=== PATIENT | male | born 1965 | race Caucasian/White ===

== ENCOUNTER 2020-09-29 09:31 | Outpatient (CLI) | payer OTHER, SELFPAY ==
[2020-09-29 10:06] LABS: Hematocrit 48.3 % (42.0-52.0); Hemoglobin 16.3 g/dL (14.0-18.0); Mean Corpuscular HGB Conc 33.7 g/dl (32-36); Mean Corpuscular Hemoglobin 30.9 pg (26-34); Mean Corpuscular Volume 91.7 fl (80-100); Mean Platelet Volume 10.7 fl (7.4-10.4); Platelet Count Result 229 k/mm3 (150-375); Red Blood Count 5.27 M/mm3 (4.6-6.20); Red Cell Distribution Width 12.3 % (11.5-14.5); White Blood Count 5.5 K/mm3 (4.5-10.0)
[2020-09-29 10:18] LABS: Alanine Aminotransferase 26 U/L (4-50); Albumin Level 4.5 g/dL (3.5-5.1); Alkaline Phosphatase 55 U/L (38-126); Anion Gap 10 mmol/L (8-16); Aspartate Amino Transferase 28 U/L (17-59); Bilirubin,Total 1.6 mg/dL (0.2-1.3); Blood Urea Nitrogen 16 mg/dL (9-20); Calcium 9.8 mg/dL (8.4-10.2); Carbon Dioxide 26 mmol/L (22-30); Chloride 105 mmol/L (98-107); Cholesterol 242 mg/dL (0-200); Estimated Glomerular Filt Rate > 60; Glucose 114 mg/dL (75-110); HDL Direct 66 mg/dL; Potassium 4.3 mmol/L (3.4-5.0); Sodium 141 mmol/L (137-145); Triglycerides 200 mg/dL (<150)
[2020-09-29 10:29] LABS: LDL Cholesterol Direct 108 mg/dL
--- NOTE | 2020-09-29 10:30 | ECG_ITS ---
Measurements Intervals [place] Rate: 70 P: 47 NC: 136 QRS: 16 QRSD: 102 T: 9 QT: 366 QTc: 395 Interpretive Statements SINUS RHYTHM NORMAL ECG Electronically Signed On 09-29-2020 12:06:21 CDT by Amish Wynn D.O.
[2020-09-29 10:49] LABS: Prostate Specific Antigen 0.7 ng/mL (< OR = 4.0)
[2020-09-29 10:53] LABS: Vitamin D 25 Hydroxy 43.9 ng/mL
== END 2020-09-29 09:32 | disposition home or self-care (01) ==
LOC: ANHLAB 09:35
PROVIDERS: PCP Family Medicine; Visit Provider Nurse Practitioner Family
DX: Z12.5 Encounter for screening for malignant neoplasm of prostate (principal); E78.49 Other hyperlipidemia; E55.9 Vitamin D deficiency, unspecified; Z13.29 Encounter for screening for other suspected endocrine disorder; R07.89 Other chest pain; Z51.81 Encounter for therapeutic drug level monitoring; Z79.899 Other long term (current) drug therapy; I10 Essential (primary) hypertension; R53.83 Other fatigue
CPT/HCPCS: 36415; 80053; 80061; 82306; 82607; 84153; 84443; 85027; 93005; G0103

== ENCOUNTER 2020-10-15 09:00 | Outpatient (CLI) | payer OTHER, SELFPAY ==
--- NOTE | ~2020-10-15 | XR_ITS ---
EXAMINATION: XR lumbar spine 2-3V DATE: 10/15/2020 09:16 INDICATION: Low back pain TECHNIQUE: Anteroposterior and lateral views of the lumbar spine, and cone-down lateral view of the l umbosacral junction were obtained. COMPARISON: None. FINDINGS: There is no fracture, dislocation, or subluxation. The vertebral body heights are normal. T here is minimal levocurvature of the lumbar spine. The intervertebral disc spaces are maintained. Sma ll degenerative osteophytes project from the anterior endplates of multiple vertebral bodies. Mild fa cet osteoarthritis is noted in the lower lumbar spine. The bowel gas pattern is normal. There is mild osteoarthritis of the hips. IMPRESSION: 1. Mild lumbar spondylosis without acute findings. Reviewed, dictated and finalized at location A.
== END 2020-10-15 09:01 | disposition home or self-care (01) ==
PROVIDERS: PCP Family Medicine; Visit Provider Nurse Practitioner Family
DX: M47.816 Spondylosis without myelopathy or radiculopathy, lumbar region (principal); R20.0 Anesthesia of skin
CPT/HCPCS: 72100

== ENCOUNTER 2020-10-27 09:27 | Outpatient (CLI) | payer OTHER, SELFPAY ==
--- NOTE | 2020-10-30 13:00 | WPDHOLTEREM ---
Holter/Event Monitor Holter/Event Monitor Date of procedure: 10/27/20 Holter/Event Procedure: 24 Hr Holter Monitor Indications: Chest pain Conclusion: 1. 24 hour holter monitor on 10/27/20. 2. Underlying rhythm is sinus rhythm. HR range 62-140 bpm; average HR 95 bpm. 3. There are 1 premature surpaventricular complex. No supraventricular tachycardia. 4. No premature ventricular complex. No ventricular tachycardia. 5. No sinoatrial or atrioventricular blocks. No signficant pauses greater than 2 seconds. 6. No symptoms available for correlation.
== END 2020-10-27 09:28 | disposition home or self-care (01) ==
LOC: ANHCARD 09:28
PROVIDERS: PCP Family Medicine; Visit Provider Nurse Practitioner Family
DX: R07.9 Chest pain, unspecified (principal)
CPT/HCPCS: 93225; 93226

== ENCOUNTER 2021-03-15 15:40 | Outpatient (CLI) | payer OTHER, SELFPAY | END 2021-03-15 15:41 | disposition home or self-care (01) | LOC: ANHLAB 15:42 | PROVIDERS: PCP Family Medicine; Visit Provider Nurse Practitioner Family | DX: E55.9 Vitamin D deficiency, unspecified (principal) | CPT/HCPCS: 36415; 82306 ==

== ENCOUNTER 2021-05-31 15:59 | Outpatient (CLI) | payer OTHER, SELFPAY ==
--- NOTE | ~2021-05-31 | XR_ITS ---
XR ribs BI 3V w CXR 2V DATE: 05/31/2021 15:50 INDICATION: Localized swelling, mass, lump of the trunk TECHNIQUE: PA and lateral chest. 3 views of the right ribs. 3 views of the left ribs. COMPARISON: None FINDINGS: Normal heart size. No hilar or mediastinal enlargement. The lungs are clear of infiltrate o r consolidation. No pleural effusion or pulmonary vascular congestion or pneumothorax. Status post cholecystectomy. No left or right rib fracture is detected. IMPRESSION: No rib fracture or bone destruction is evident No active pulmonary disease Status post cholecystectomy Reviewed, dictated and finalized at location A. IONHOLDER INFORMATION CLERK
[2021-05-31 16:25] LABS: Alanine Aminotransferase 41 U/L (4-50); Albumin Level 4.6 g/dL (3.5-5.1); Alkaline Phosphatase 67 U/L (38-126); Anion Gap 6 mmol/L (8-16); Aspartate Amino Transferase 35 U/L (17-59); Bilirubin,Total 0.8 mg/dL (0.2-1.3); Blood Urea Nitrogen 20 mg/dL (9-20); Calcium 9.6 mg/dL (8.4-10.2); Carbon Dioxide 26 mmol/L (22-30); Chloride 105 mmol/L (98-107); Cholesterol 226 mg/dL (0-200); Estimated Glomerular Filt Rate > 60; Glucose 111 mg/dL (65-110); HDL Direct 60 mg/dL; Potassium 4.2 mmol/L (3.4-5.0); Sodium 137 mmol/L (137-145); Triglycerides 233 mg/dL (<150)
[2021-05-31 16:37] LABS: LDL Cholesterol Direct 116 mg/dL
[2021-05-31 17:11] LABS: Hemoglobin A1C 5.7 % (<5.7)
== END 2021-05-31 16:00 | disposition home or self-care (01) ==
PROVIDERS: PCP Family Medicine; Visit Provider Nurse Practitioner Family
DX: R22.2 Localized swelling, mass and lump, trunk (principal); R07.89 Other chest pain; R05.9 Cough, unspecified; Z20.822 Contact with and (suspected) exposure to COVID-19; R73.01 Impaired fasting glucose; I10 Essential (primary) hypertension
CPT/HCPCS: 36415; 71046; 71110; 80053; 80061; 83036

== ENCOUNTER 2022-05-16 05:11 | Emergency (ER) | payer OTHER, SELFPAY ==
[2022-05-16] VITALS (9 sets, daily range): BP systolic 123–152; BP diastolic 87–100; PULSE 70–91; RESP 14–19; TEMP 37; O2SAT 98–100
--- NOTE | ~2022-05-16 | XR_ITS ---
Clinical Indication: Chest pain PA and lateral views of the chest: Comparison: 05/31/2021 Findings: The lungs are clear, without evidence of focal consolidation or pleural effusion. Cardiome diastinal silhouette is within normal limits. Bones and soft tissues are unremarkable. Impression: Normal chest. Reviewed, dictated and finalized at [facility]. ON CUTTER Impression: Normal chest.
--- NOTE | 2022-05-16 05:12 | ECG_ITS ---
Measurements Intervals [place] Rate: 89 P: 48 HI: 142 QRS: 16 QRSD: 97 T: 10 QT: 349 QTc: 426 Interpretive Statements SINUS RHYTHM LOW QRS VOLTAGE IN PRECORDIAL LEADS CONSIDER INFERIOR INFARCT, AGE INDETERMINATE BASELINE WANDER- I, V5 ABNORMAL ECG COMPARED TO ECG 09/29/2020 10:35:42 NO SIGNIFICANT CHANGES Electronically Signed On 05-16-2022 7:52:37 [employer] by Amish Wynn D.O.
[2022-05-16 05:25] LABS: Basophils Absolute Auto 0.1 K/mm3 (0.0-0.1); Basophils Percent Auto 0.9 % (0.2-1.2); Eosinophils Absolute Auto 0.1 K/mm3 (0-0.3); Eosinophils Percent Auto 1.8 % (0-4.4); Hematocrit 44.7 % (42.0-52.0); Hemoglobin 15.3 g/dL (14.0-18.0); Immature Granulocyte Absolute 0.01 K/mm3 (0.00-0.031); Immature Granulocyte Percent A 0.2 % (0-0.5); Lymphocytes Absolute Auto 1.96 K/mm3 (0.9-3.2); Lymphocytes Percent Auto 29.7 % (18.3-44.2); Mean Corpuscular HGB Conc 34.2 g/dl (32-36); Mean Corpuscular Hemoglobin 31.5 pg (26-34); Mean Platelet Volume 10.6 fl (7.4-10.4); Monocytes Absolute Auto 0.7 K/mm3 (0.1-0.6); Monocytes Percent Auto 10.9 % (2.6-8.5); Neutrophils Absolute Auto 3.7 K/mm3 (1.3-6.7); Neutrophils Percent Auto 56.5 % (45.5-73.1); Platelet Count Result 208 k/mm3 (150-375); Red Blood Count 4.86 M/mm3 (4.6-6.20); Red Cell Distribution Width 11.9 % (11.5-14.5); White Blood Count 6.6 K/mm3 (4.5-10.0)
--- NOTE | 2022-05-16 05:33 | ED.GENADULT ---
HPI - General Adult General Chief complaint: Chest Pain <Stephen Miles MD - Last Filed: 05/16/22 05:35> Stated complaint: Chest pain <Stephen Miles MD - Last Filed: 05/16/22 05:35> Time Seen by Provider: 05/16/22 05:19 <Stephen Miles MD - Last Filed: 05/16/22 05:35> History of Present Illness HPI narrative: Patient is a 56-year-old gentleman who presents to the emergency department with chief complaint of chest pain. Patient reports that this evening he started having some chest discomfort describes it as midsternal nonradiating patient denies pain in his arm or neck patient denies diaphoresis. Patient reports he has history of hypertension and hyperlipidemia reports he has had a prior cholecystectomy reports he does have history of reflux. Patient reports he has noticed some intermittent discomfort over the last several days but increased his dose of Prilosec and has had improvement in the symptoms up until Monday. <Stephen Miles MD - Last Filed: 05/16/22 05:35> Related Data Allergies/adverse reactions: Allergies Allergy/AdvReac Type Severity Reaction Status Date / Time No Known Allergies Allergy Verified 05/16/22 05:16 <Stephen Miles MD - Last Filed: 05/16/22 05:35> Review of Systems Review of Systems: A 10 system review of systems was completed on the patient and is negative except for what is stated in the HPI. Nursing and ancillary documentation was reviewed. <Stephen Miles MD - Last Filed: 05/16/22 05:35> [facility] Past Medical History Medical History: Medical History BMI 25.0-25.9,adult BMI 26.0-26.9,adult BMI 27.0-27.9,adult Cholecystectomy planned <Stephen Miles MD - Last Filed: 05/16/22 05:35> Surgical History Surgical History: Surgical History H/O rotator cuff surgery <Stephen Miles MD - Last Filed: 05/16/22 05:35> Family History Family History: Family History Father Heart disease Pacemaker Skin cancer Mother Diabetes mellitus COPD (chronic obstructive pulmonary disease) Sibling No problems noted. 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 Gender identity (if verbalized by the patient): Male <Stephen Miles MD - Last Filed: 05/16/22 05:35> Exam Narrative: GENERAL: Well-appearing, well-nourished, and in no acute distress. HEAD: Normocephalic, atraumatic. EYES: PERRLA and EOMI. ENT: Nares clear, no rhinorrhea or epistaxis. Mucous membranes moist. NECK: Supple. CHEST: Clear to auscultation. No respiratory distress. HEART: Regular rate and rhythm. No murmur heard. Normal peripheral pulses. ABDOMEN: Soft, nontender, nondistended, normal active bowel sounds. EXTREMITIES: Normal range of motion. No edema. SKIN: Warm, dry, no rash. NEURO: No focal deficits. Alert and oriented x3. PSYCH: Normal mood and affect. <Stephen Miles MD - Last Filed: 05/16/22 05:35> Course Course Emergency Course: Patient's troponins negative x2. [place] appropriate for outpatient follow-up with PCP. Patient informed of results and agreeable discharge
[2022-05-16 05:36] LABS: Alanine Aminotransferase 49 U/L (6-50); Albumin Level 4.2 g/dL (3.5-5.1); Alkaline Phosphatase 68 U/L (38-126); Anion Gap 6 mmol/L (8-16); Aspartate Amino Transferase 31 U/L (17-59); Bilirubin,Total 1.2 mg/dL (0.2-1.3); Blood Urea Nitrogen 17 mg/dL (9-20); Calcium 8.9 mg/dL (8.4-10.2); Carbon Dioxide 28 mmol/L (22-30); Chloride 105 mmol/L (98-107); Estimated CRCL calculation 80 ml/min; Estimated Glomerular Filt Rate > 60; Glucose 119 mg/dL (65-110); Lipase 148 U/L (23-300); Prothrombin Time 12.5 Seconds (11.1-14.7); Sodium 139 mmol/L (137-145)
[2022-05-16 05:37] LABS: Partial Thromboplastin Time 25.8 SECONDS (22.3-36.8)
[2022-05-16 05:47] LABS: Troponin I < 0.012 ng/mL (0.000-0.034)
[2022-05-16] MEDS: BELLADONNA ALK/PHENOB ELIX 10 ML, MAG HYDROX/ALUMINUM HYD/SIMETH 30 ML, LIDOCAINE HCL 2... PO (06:14)
[2022-05-16] MEDS: ASPIRIN 81 MG CHEWABLE TABLET 324 MG PO (06:14)
--- NOTE | 2022-05-16 07:08 | PC.NURSE ---
Report given to FABIOLA Marie.
[2022-05-16 08:41] LABS: Troponin I < 0.012 ng/mL (0.000-0.034)
== END 2022-05-16 09:49 | disposition home or self-care (01) ==
PROVIDERS: Emergency Provider Emergency Medicine; PCP Family Medicine
DX: R07.89 Other chest pain (principal); Z77.22 Contact with and (suspected) exposure to environmental tobacco smoke (acute) (chronic); R94.31 Abnormal electrocardiogram [ECG] [EKG]
CPT/HCPCS: 36415; 71046; 80053; 83690; 84484; 85025; 85610; 85730; 93005; 99284; A9270

== ENCOUNTER 2022-05-21 08:14 | Outpatient (CLI) | payer OTHER, SELFPAY ==
[2022-05-21 10:32] LABS: Cholesterol 193 mg/dL (0-200); HDL Direct 49 mg/dL; Triglycerides 78 mg/dL (<150)
[2022-05-21 10:43] LABS: LDL Cholesterol Direct 103 mg/dL
[2022-05-21 10:58] LABS: Vitamin D 25 Hydroxy 37.5 ng/mL
[2022-05-21 11:04] LABS: Prostate Specific Antigen 1.3 ng/mL (< OR = 4.0); Thyroid Stimulating Hormone 0.363 uIU/mL (0.465-4.680)
[2022-05-21 11:20] LABS: Hemoglobin A1C 5.4 % (<5.7)
== END 2022-05-21 08:15 | disposition home or self-care (01) ==
LOC: ANHLAB 08:15
PROVIDERS: PCP Family Medicine; Visit Provider Nurse Practitioner Family
DX: R73.09 Other abnormal glucose (principal); E55.9 Vitamin D deficiency, unspecified; E78.49 Other hyperlipidemia; I10 Essential (primary) hypertension; K21.9 Gastro-esophageal reflux disease without esophagitis; R07.9 Chest pain, unspecified; Z12.5 Encounter for screening for malignant neoplasm of prostate; Z79.899 Other long term (current) drug therapy
CPT/HCPCS: 36415; 80061; 82306; 83036; 84153; 84443; G0103

== ENCOUNTER 2023-12-07 13:20 | Outpatient (CLI) | payer OTHER, SELFPAY ==
[2023-12-07 14:28] LABS: Hematocrit 45.1 % (42.0-52.0); Hemoglobin 14.8 g/dL (14.0-18.0); Mean Corpuscular HGB Conc 32.8 g/dl (32-36); Mean Corpuscular Hemoglobin 31.2 pg (26-34); Mean Corpuscular Volume 95.1 fl (80-100); Platelet Count Result 199 k/mm3 (150-375); Red Blood Count 4.74 M/mm3 (4.6-6.20); Red Cell Distribution Width 11.9 % (11.5-14.5); White Blood Count 5.8 K/mm3 (4.5-10.0)
[2023-12-07 14:40] LABS: Alanine Aminotransferase 43 U/L (6-50); Albumin Level 4.5 g/dL (3.5-5.1); Alkaline Phosphatase 73 U/L (38-126); Anion Gap 12 mmol/L (4-12); Aspartate Amino Transferase 41 U/L (17-59); Bilirubin,Total 1.6 mg/dL (0.2-1.3); Blood Urea Nitrogen 14 mg/dL (9-20); Calcium 9.1 mg/dL (8.4-10.2); Carbon Dioxide 28 mmol/L (22-30); Chloride 97 mmol/L (98-107); Estimated Glomerular Filt Rate > 60; Glucose 93 mg/dL (65-110); Potassium 3.8 mmol/L (3.4-5.0); Sodium 137 mmol/L (137-145)
[2023-12-07 15:07] LABS: Thyroid Stimulating Hormone 0.692 uIU/mL (0.465-4.680)
== END 2023-12-07 13:21 | disposition home or self-care (01) ==
LOC: ANHLAB 13:22
PROVIDERS: PCP Family Medicine; Visit Provider Family Medicine
DX: K21.9 Gastro-esophageal reflux disease without esophagitis (principal)
CPT/HCPCS: 36415; 80053; 84443; 85027